=== PATIENT | male | born 1965 | race Two or more races ===

== ENCOUNTER 2021-11-25 14:36 | Emergency (ER) | payer OTHER ==
[~2021-11-25] VITALS: Ht 162.6 cm; Wt 71.3 kg
[2021-11-25 14:45] VITALS: BP 129/62
--- NOTE | 2021-11-25 14:59 | PHYS DOC ---
General Adult EDM: Chief Complaint: UPPER EXTREMITY INJURY HPI: HPI: Patient is a 56-year-old male with right elbow pain. Patient was on a ladder standing about 3 feet off the ground. He lost his balance and fell landing directly onto his elbow. Denies injury elsewhere. Specifically no head injury or headache, denies any neck pain, chest discomfort, shortness of breath or other extremity pain. Review of Systems: Review of Systems: Constitutional: Denies fever Eyes: Denies change in visual acuity or eye pain HENT: Denies sore throat Respiratory: Denies shortness of breath Cardiovascular: Denies chest pain GI: Denies abd pain : Denies dysuria Musculoskeletal: Denies back injury Integument: Denies rash or skin lesions Neurologic: Denies headache, focal weakness or sensory changes All other systems were reviewed and found to be within normal limits, except as documented in this note. Current Medications: Current Meds: Current Medications Medications (Trade) Dose Ordered Sig/Corinne Start Time Stop Time Status Last Admin Dose Admin Acetaminophen/ Hydrocodone Bitart (Lortab 5/325) 2 tab 1X ONCE 11/25/21 15:00 11/25/21 15:01 UNV Ondansetron HCl (Zofran) 4 mg 1X ONCE 11/25/21 15:00 11/25/21 15:01 UNV Allergies: Allergies: Allergies Coded Allergies Type Severity Reaction Last Updated Verified No Known Drug Allergies 11/25/21 No Physical Exam: PE: Constitutional: Well developed, well nourished, no acute distress, non-toxic appearance. HENT: Normocephalic, atraumatic, bilateral external ears normal, mucosa moist, nose normal. Eyes: EOMI, conjunctiva normal, no discharge. Neck: Normal range of motion, supple, no stridor, no meningeal signs. Cardiovascular: Regular rate and rhythm Lungs & Thorax: Bilateral breath sounds clear to auscultation Abdomen: Soft, no tenderness or obvious masses Skin: Warm, dry, no erythema, no rash. Extremities: Patient holds right elbow at about 45 degrees, unable to flex or extend secondary to pain. Quite a bit of swelling over the olecranon. No neurovascular compromise distally. Neurologic: Alert and oriented, normal motor function, normal sensory function, no focal deficits noted. Psychologic: Affect normal, judgement normal, mood normal. EKG: EKG: [] Radiology/Procedures: Radiology/Procedures: [] Impressions: PATIENT: VICK ORELLANA ACCOUNT: [id number] : 1965 LOCATION: ER AGE: 56 SEX: M EXAM STATUS: REG ER ORD. PHYSICIAN: ASHLYN ROSE MD REASON: fall, pain PROCEDURE: ELBOW RIGHT 3V XR ELBOW COMPLETE_RIGHT 3+ VIEWS DATE: 11/25/2021 2:58 PM INDICATION: fall, pain COMPARISON: None. FINDINGS: Acute displaced noncomminuted olecranon fracture with 7 mm distraction. Elbow joint is congruent. Joint effusion is present. Significant posterior soft tissue swelling. Old healed distal humerus fracture. IMPRESSION: Acute displaced noncomminuted olecranon fracture. Electronically signed by: Philippe Patel MD (11/25/2021 3:28 PM) [facility] DICTATED AND SIGNED BY: PHILIPPE PATEL MD DATE: 11/25/21 152 CC: PCP,NO; ASHLYN ROSE MD ~ Heart Score: C/O Chest Pain: No Risk Factors: Risk Factors: DM, Current or recent (<one month) smoker, HTN, HLP, family hi story of CAD, obesity. Risk Scores: Score 0 - 3: 2.5% MACE over next 6 weeks - Discharge Home Score 4 - 6: 20.3% MACE over next 6 weeks - Admit for Clinical Observation Score 7 - 10: 72.7% MACE over next 6 weeks - Early Invasive Strategies Course & Med Decision Making: Course & Med Decision Making Pertinent Labs and Imaging studies reviewed. (See chart for details) [] Is a 56-year-old male with olecranon fracture. I did speak with orthopedics. Patient be placed in a long-arm splint and we will have him follow-up next week. He will be given a prescription for [place], he is stable for discharge. Dragon Disclaimer: Dragbel Disclaimer: This electronic medical record was generated, in whole or in part, using a voice recognition dictation system. Departure Departure: Impression: Primary Impression: Closed olecranon fracture Disposition: HOME / SELF CARE / HOMELESS Condition: STABLE Referrals: PCP,JANIS (PCP) Patient Instructions: Elbow Fracture, Simple Scripts Hydrocodone/Acetaminophen (Hydrocodone-Acetamin 5-325 mg) 1 Each Tablet 1-2 EACH PO Q6HRS for pain, #20 TAB Prov: ASHLYN ROSE MD 11/25/21 ASHLYN ROSE MD Nov 25, 2021 14:59
[2021-11-25] MEDS ORDERED: HYDROcodone/APAP 5/325MG 1 TAB TABLET PO ONE (15:00)
[2021-11-25] MEDS ORDERED: ONDANSETRON PF 4 MG/2 ML VIAL. IVP ONE (15:00)
[2021-11-25] MEDS ORDERED: ONDANSETRON ODT 4 MG TAB.RAPDIS ONE (15:09)
[2021-11-25] MEDS ORDERED: ONDANSETRON ODT 4 MG TAB.RAPDIS PO ONE (15:15)
--- NOTE | 2021-11-25 15:30 | RAD ---
XR ELBOW COMPLETE_RIGHT 3+ VIEWS DATE: 11/25/2021 2:58 PM INDICATION: fall, pain COMPARISON: None. FINDINGS: Acute displaced noncomminuted olecranon fracture with 7 mm distraction. Elbow joint is congruent. Cynthia nt effusion is present. Significant posterior soft tissue swelling. Old healed distal humerus fractur e. IMPRESSION: Acute displaced noncomminuted olecranon fracture. Electronically signed by: Elias Amador MD (11/25/2021 3:28 PM) ROSEANN
[2021-11-25] MEDS ORDERED: HYDR-2759 PO (15:47)
== END 2021-11-25 15:52 | disposition home or self-care (01) ==
LOC: ER 14:36
DX: S52.021A Displaced fracture of olecranon process without intraarticular extension of right ulna, initial encounter for closed fracture (principal); W11.XXXA Fall on and from ladder, initial encounter; Y93.89 Activity, other specified; Y92.89 Other specified places as the place of occurrence of the external cause; Y99.8 Other external cause status
CPT/HCPCS: 29105; 73080; 99283; Q0162